=== PATIENT | male | born 1995 | race Caucasian/White ===

== ENCOUNTER 2017-03-06 12:03 | Emergency (ER) | payer BC ==
[2017-03-06] MEDS ORDERED: ONDANSETRON 4 MG/2 ML VIAL IVP ONE (12:51)
[2017-03-06] MEDS: NS 1,000 ML IV ONE ×2 (12:51→13:19)
[2017-03-06] MEDS ORDERED: ACETAMINOPHEN 500 MG TAB PO ONE (12:54)
[2017-03-06 13:05] LABS: % IMMATURE GRANULYOCYTES 0.3 % (0.0-1.1); ABSOLUTE IMMATURE GRANULOCYTES 0.03 10^3/uL (0.00-0.10); ADD DIFF? NO; ADD MORPH? NO; ADD SCAN? NO; ATYPICAL LYMPHOCYTE FLAG 0 (0-99); FRAGMENT RBC FLAG 0 (0-99); HEMATOCRIT 46.8 % (40.0-51.0); HEMOGLOBIN 16.3 g/dL (13.7-17.5); LEFT SHIFT FLG 20 (0-99); LIPEMIA HEMOLYSIS FLAG 90 (0-99); MEAN CELL HEMOGLOBIN 29.7 pg (27.9-34.1); MEAN CELL HEMOGLOBIN CONCENTR. 34.8 g/dL (32.4-36.7); MEAN CELL VOLUME 85.4 fL (81.5-99.8); MEAN PLATELET VOLUME 11.2 fL (8.7-11.7); PLATELET CLUMPS FLAG 0 (0-99); PLATELET COUNT 155 10^3/uL (150-400); RED BLOOD CELL COUNT 5.48 10^6/uL (4.40-6.38); RED CELL DISTRIBUTION WIDTH 12.4 % (11.5-15.2)
[2017-03-06] MEDS ORDERED: NS 1,600 ML IV ONE (13:07)
[2017-03-06 13:09] LABS: APTT 29.9 SEC (23.0-38.0); INR 1.22 (0.83-1.16); PROTIME(PATIENT) 15.4 SEC (12.0-15.0)
[2017-03-06 13:11] LABS: ANION GAP 16 mEq/L (8-16); BILIRUBIN,TOTAL 1.1 mg/dL (0.1-1.4); CALCIUM 9.3 mg/dL (8.5-10.4); CARBON DIOXIDE 23 mEq/l (22-31); CHLORIDE 99 mEq/L (97-110); CREATININE 1.1 mg/dL (0.7-1.3); GLOMERULAR FILTRATION RATE > 60; GLUCOSE 96 mg/dL (70-100); SODIUM 138 mEq/L (134-144)
[2017-03-06 14:01] LABS: LACGHOST ORDER
[2017-03-06] MEDS ORDERED: OSELTAMIVIR PHOSPHATE 75 MG CAP PO ONE (14:37)
[2017-03-06] MEDS ORDERED: IBUPROFEN 600 MG TAB PO ONE (14:41)
[2017-03-06 15:24] VITALS: BP 114/53; PULSE 99; RESP 18; TEMP 99.7; O2SAT 93
--- NOTE | 2017-03-06 15:25 | EDPHY ---
H & P Stated Complaint: cough, fever - Personal History Current Tetanus Diphtheria and Acellular Pertussis (TDAP): Yes - Medical/Surgical History Hx Asthma: No Hx Chronic Respiratory Disease: No Hx Diabetes: No Hx Cardiac Disease: No Hx Renal Disease: No Hx Cirrhosis: No Hx Alcoholism: No Hx HIV/AIDS: No Hx Splenectomy or Spleen Trauma: No - Social History Smoking Status: Never smoked HPI/ROS: Chief complaint: Cold symptoms History of present illness: This is a 22-year-old male who presents to the emergency department for cold symptoms. Patient reports the onset of symptoms over the last 2-3 days. He reports fevers and chills, body aches and a persistent cough. Denies precipitating factors. He denies alleviating factors. Denies other associated signs or symptoms including no headache or neck pain, no rash. Review of systems: A 10 point review of systems was obtained and other than described above was negative (Tucker Lozano) - Social History Additional Social History: He is currently a college student living in the dormitory. (Tucker Lozano) - Physical Exam Exam: General Appearance: Alert, nontoxic. Eyes: Pupils equal and round no pallor or injection. ENT: Tympanic membranes, external auditory canals, external ears and surrounding soft tissue including over the mastoids are unremarkable. Nasopharynx is not injected. There is no rhinorrhea. Oropharynx is injected. There is no edema. There is no exudate. There is no asymmetry. The uvula is midline. No elevation of the tongue. There is no hoarseness, no drooling, no trismus, no stridor. Respiratory: Patient is talking in full sentences. No use of accessary muscles or evidence of respiratory distress. Occasional rhonchi. No wheezing or rales. Cardiovascular: Regular rate and rhythm. Gastrointestinal: Abdomen is soft and nontender, no masses, bowel sounds normal. Neurological: Alert and oriented x4. Strength and sensation intact and symmetrical. No meningismus. Skin: Warm and dry, no rashes. Musculoskeletal: Neck is supple nontender. Extremities are symmetrical, full range of motion. Psychiatric: Patient is oriented X 3, there is no agitation. (Tucker Lozano) Constitutional: Initial Vital Signs Temperature (C) 39.1 C H 03/06/17 12:20 Heart Rate 116 H 03/06/17 12:20 Respiratory Rate 20 03/06/17 12:20 Blood Pressure 139/59 H 03/06/17 12:20 O2 Sat (%) 94 03/06/17 12:20 O2 Delivery Mode Room Air Allergies/Adverse Reactions: gluten Allergy (Verified 03/06/17 12:25) Home Medications: Medication Instructions Recorded Codeine Phosphate/Guaifenesin 10 ml PO Q6 #120 ml 03/06/17 [Codeine-Guaifen 10-100 mg/5 ml] Oseltamivir Phosphate [Tamiflu 75 75 mg PO BID 5 Days 03/06/17 mg (*)] Medical Decision Making - Diagnostics Imaging: I viewed and interpreted images myself ED Course/Re-evaluation: Patient is discussed with my secondary supervising physician Dr. Tonai Tan. Patient presents to the emergency department for cold symptoms. Patient did trigger sepsis screening. He ultimately triggered severe sepsis with an elevated lactate. Patient was IV hydrated. Recheck of lactic acid shows that it has returned to normal. Patient was symptomatically treated with Tylenol and ibuprofen with improvement in fever. Vital signs are stabilize. Evaluation does reveal patient is suffering from influenza B. I do believe he is within time frame for treatment with Tamiflu. We have discussed it and he would like to start it. He is given his 1st dose in the emergency room. Patient is observed for number of hours and remains well appearing. I do believe he is appropriate for outpatient management. Patient is discharged home. He is asked to follow up with [facility] tomorrow for recheck. Return precautions are given. Patient voiced understanding and agreement with plan. ( Tucker Lozano) Differential Diagnosis: Included but not limited to pharyngitis, tonsillitis, bronchitis, pneumonia, influenza, meningitis, sepsis (Tucker Lozano) Other Provider: The patient was evaluated and managed by the Physician Pairing Machine Operator/ Nurse Practitioner. I discussed the patient's presentation and course with the midlevel provider with them and agree with the evaluation. My co-signature indicates that I have reviewed this chart and I agree with the findings and plan of care as documented. I am the secondary supervising physician. (Tonia Tan) - Data Points Laboratory Results: Laboratory Results 03/06/17 12:45 03/06/17 12:45 Microbiology Results: MICROBIOLOGY 03/06/17 13:49 Blood Blood Culture - Preliminary 03/06/17 12:45 Blood Blood Culture - Preliminary Medications Given: Discontinued Medications Acetaminophen (Tylenol) 1,000 mg PO EDNOW ONE Stop: 03/06/17 12:55 Last Admin: 03/06/17 13:00 Dose: 1,000 mg Sodium Chloride (Ns) 1,000 mls @ 0 mls/hr IV EDNOW ONE PRN Reason: Wide Open Stop: 03/06/17 12:52 Last Admin: 03/06/17 13:19 Dose: Not Given Sodium Chloride (Ns) 1,600 mls @ 3,200 mls/hr 30 ml/kg infuse over 30 min ( 1600 ml) IV EDNOW ONE Stop: 03/06/17 13:36 Last Admin: 03/06/17 13:17 Dose: 1,600 mls Ibuprofen (Motrin) 600 mg PO EDNOW ONE Stop: 03/06/17 14:42 Last Admin: 03/06/17 14:55 Dose: 600 mg Ondansetron HCl (Zofran) 4 mg IVP EDNOW ONE Stop: 03/06/17 12:52 Last Admin: 03/06/17 13:00 Dose: 4 mg Oseltamivir Phosphate (Tamiflu) 75 mg PO EDNOW ONE Stop: 03/06/17 14:38 Last Admin: 03/06/17 15:17 Dose: 75 mg Departure - Departure Disposition: Home, Routine, Self-Care Clinical Impression: Influenza B Condition: Good Instructions: Influenza (ED) Additional Instructions: Follow-up with student health tomorrow for recheck Use ibuprofen 600 mg 3 times a day for the next 2-3 days for fever and pain Take Tamiflu as directed until finished Use cough medication as needed for symptom control If symptoms worsen or new symptoms develop return to the emergency room for recheck Referrals: NONE *PRIMARY CARE P,. [Primary Care Provider] - As per Instructions Stand Alone Forms: School Excuse Prescriptions: Codeine Phosphate/Guaifenesin [Codeine-Guaifen 10-100 mg/5 ml] 10 ml PO Q6 #120 ml Oseltamivir Phosphate [Tamiflu 75 mg (*)] 75 mg PO BID 5 Days
== END 2017-03-06 15:37 | disposition home or self-care (01) ==
DX: J10.1 Influenza due to other identified influenza virus with other respiratory manifestations (principal)
CPT/HCPCS: 96374; J2405